=== PATIENT | female | born 1995 | race Caucasian/White ===

== ENCOUNTER 2017-06-27 16:12 | Emergency (ER) | payer OTHER ==
--- NOTE | 2017-06-27 16:20 | PDOC ---
Rapid Medical Evaluation Time Seen by Provider: 06/27/17 16:15 Medical Evaluation: 06/27/17 16:15 The patient presents with a chief complaint of: Difficulty breathing last night with dry cough. No asthma hx, not a smoker. No recent travel I have performed a brief in-person evaluation of this patient; Pertinent physical exam findings: Lungs CTAB. I have ordered the following: Urine preg The patient will proceed to the ED for further evaluation.
[2017-06-27 16:49] VITALS: BP 140/85; PULSE 88; TEMP 98.3; BMI 25.7
--- NOTE | 2017-06-27 16:50 | PDOC ---
History of Present Illness - General Chief Complaint: Shortness of Breath Stated Complaint: S.O.B Time Seen by Provider: 06/27/17 16:15 - History of Present Illness Initial Comments: 06/27/17 17:06 Ms. Nolan Bloom is a 22 yo female w/ no pmh who presents c/o a 2 day history of chest tightness that she associates with cough. She says it gets worse when she goes outside into the cold air and that it is dry and non-productive. She denies any sore throat, runny nose, sick contacts, or recent travel. Ms. Nolan Bloom also complains of 2 weeks of blood on her stool with associated pain defecating and hard stool. The patient denies chest pain, shortness of breath, headache and dizziness. Denies fever, chills, nausea, vomit, and diarrhea. Denies dysuria, frequency, urgency and hematuria. Allergies: NKDA Past History - Past Medical History Home Medications: Ambulatory Orders Azithromycin [Zithromax -] 250 mg PO UTDICT #6 tab 06/27/17 Guaifenesin [Mucinex] 1,200 mg PO ASDIR PRN #14 tab.er.12h 06/27/17 COPD: No - Suicide/Smoking/Psychosocial Hx Smoking History: Never smoked Have you smoked in the past 12 months: No Information on smoking cessation initiated: No Hx Alcohol Use: No Drug/Substance Use Hx: No Substance Use Type: None Review of Systems - Review of Systems Comments:: 06/27/17 17:11 GENERAL/CONSTITUTIONAL: No fever or chills. No weakness. HEAD, EYES, EARS, NOSE AND THROAT: No change in vision. No ear pain or discharge. No sore throat. CARDIOVASCULAR: No chest pain or shortness of breath RESPIRATORY: +Dry, non-productive cough. No wheezing or hemoptysis. GASTROINTESTINAL: Constipation as described. Some blood noted on stool with pain and straining during BM's. GENITOURINARY: No dysuria, frequency, or change in urination. MUSCULOSKELETAL: No joint or muscle swelling or pain. No neck or back pain. SKIN: No rash NEUROLOGIC: No headache, vertigo, loss of consciousness, or change in strength/ sensation. ENDOCRINE: No increased thirst. No abnormal weight change HEMATOLOGIC/LYMPHATIC: No anemia, easy bleeding, or history of blood clots. ALLERGIC/IMMUNOLOGIC: No hives or skin allergy. 06/27/17 17:50 *Physical Exam - Vital Signs Last Vital Signs Temp Pulse Resp BP Pulse Ox 98.3 F 88 18 140/85 100 06/27/17 16:16 06/27/17 16:16 06/27/17 16:16 06/27/17 16:16 06/27/17 16:16 - Physical Exam Comments: 06/27/17 17:12 GENERAL: Awake, alert, and fully oriented, in no acute distress HEAD: No signs of trauma, normocephalic, atraumatic EYES: PERRLA, EOMI, sclera anicteric, conjunctiva clear ENT: Auricles normal inspection, hearing grossly normal, nares patent, oropharynx clear without exudates. Moist mucosa NECK: Normal ROM, supple, no lymphadenopathy, JVD, or masses LUNGS: No distress, speaks full sentences, clear to auscultation bilaterally HEART: Regular rate and rhythm, normal S1 and S2, no murmurs, rubs or gallops, peripheral pulses normal and equal bilaterally. ABDOMEN: Soft, nontender, normoactive bowel sounds. No guarding, no rebound. No masses EXTREMITIES: Normal inspection, Normal range of motion, no edema. No clubbing or cyanosis. NEUROLOGICAL: Cranial nerves II through XII grossly intact. Normal speech, normal gait, no focal sensorimotor deficits SKIN: Warm, Dry, normal turgor, no rashes or lesions noted. RECTAL: Skin tag noted at 6 o'clock position Medical Decision Making - Medical Decision Making 06/27/17 17:51 Ms. Nolan Bloom presents with 2 days of dry cough with 2 weeks of pain during bowel movements with occasional blood on stool and constipation. Lungs C2AB, no sore throat or runny nose; suspect cough is viral in etiology. Z-sohail and Mucinex Rx sent to pharmacy. Patient declined Stool for Occult Blood and limited exam to visual only per preference. Patient educated on hemorrhoids and given information concerning when to come back if symptoms continue or increase. Patient verbalized understanding. *DC/Admit/Observation/Transfer Diagnosis at time of Disposition: Upper respiratory infection Qualifiers: URI type: unspecified URI Qualified Code(s): J06.9 - Acute upper respiratory infection, unspecified - Discharge Dispostion Disposition: HOME - Prescriptions Prescriptions: Azithromycin [Zithromax -] 250 mg PO UTDICT #6 tab Guaifenesin [Mucinex] 1,200 mg PO ASDIR PRN #14 tab.er.12h PRN Reason: Cough - Referrals - Patient Instructions Printed Discharge Instructions: DI for Hemorrhoids, DI for Viral Upper Respiratory Infection -- Adult Additional Instructions: We are sorry you feel ill today. Please return if any increase or continuation of symptoms, fever, chills, altered mental status, or any other concerning symptoms. - Post Discharge Activity
--- NOTE | 2017-06-27 17:11 | PDOC ---
Attending Attestation - Resident Resident Name: Killian Guzmán - ED Attending Attestation I have performed the following: I have examined & evaluated the patient, The case was reviewed & discussed with the resident, I agree w/resident's findings & plan, Exceptions are as noted - HPI HPI: 06/27/17 17:09 Cough Cold and Congestion - Physicial Exam PE: 06/27/17 17:10 Vss/NAD - Medical Decision Making 06/27/17 17:[address] Guzmán's Assessment and Plan
== END 2017-06-27 18:19 | disposition home or self-care (01) ==
LOC: JER 16:12
DX: J06.9 Acute upper respiratory infection, unspecified (principal)
CPT/HCPCS: 84703; 99281-25

== ENCOUNTER 2021-07-23 13:13 | Emergency (ER) | payer OTHER ==
[2021-07-23 13:48] VITALS: BP 152/81; PULSE 102; TEMP 99.4; BMI 24.7
[2021-07-25 11:08] LABS: SARS-CoV-2 NAA Detected (Not Detected)
== END 2021-07-23 16:20 | disposition home or self-care (01) ==
LOC: JER 13:13
DX: B34.9 Viral infection, unspecified (principal); Z20.822 Contact with and (suspected) exposure to COVID-19
CPT/HCPCS: 87804; 99283-25; C9803-CS; U0003; U0005